=== PATIENT | male | born 1990 | race Caucasian/White ===

== ENCOUNTER 2025-07-01 16:01 | Emergency (ER) | payer OTHER ==
[~2025-07-01] VITALS: Ht 180.3 cm; Wt 139.7 kg
[2025-07-01] MEDS: KETOROLAC 30 MG/ML 1 ML VIAL IM ONE (18:44)
[2025-07-01] MEDS ORDERED: IBUP80TA PO (20:21)
[2025-07-01] MEDS ORDERED: PRED10TA2 PO (20:21)
[2025-07-01 20:32] VITALS: BP 161/109; TEMP 97.3; O2SAT 97
== END 2025-07-01 20:37 | disposition home or self-care (01) ==
LOC: M ED 16:01
DX: M54.50 Low back pain, unspecified (principal); V50.5XXA Driver of pick-up truck or van injured in collision with pedestrian or animal in traffic accident, initial encounter; Y92.9 Unspecified place or not applicable; Y93.9 Activity, unspecified; Y99.9 Unspecified external cause status
CPT/HCPCS: 72131; 96372; 99283; J1885